=== PATIENT | male | born 1950 | race Caucasian/White ===

== ENCOUNTER → 2017-07-21 | Outpatient (CLI) | payer MEDICARE ==
[2017-07-21 11:53] LABS: HEMATOCRIT 50.3 % (42.0-52.0); HEMOGLOBIN 17.2 g/dL (13.5-18.0); MEAN CELL VOLUME 87 fl (78-100); MEAN CORPUSCULAR HEMOGLOBIN 30 pg (27-31); MEAN CORPUSCULAR HGB CONC 34 g/dL (33-37); MEAN PLATELET VOLUME 10.3 fl (7.4-10.4); PLATELET COUNT 168 K/mm3 (130-400); RED BLOOD COUNT 5.81 M/mm3 (4.20-5.60); RED CELL DISTRIBUTION WIDTH 13.3 % (11.5-14.5); WHITE BLOOD COUNT 8.7 K/mm3 (4.8-10.8)
[2017-07-21 12:10] LABS: CALCIUM 10.1 mg/dL (8.4-10.2); POTASSIUM 4.2 mmol/L (3.6-5.0)
[2017-07-21 12:22] LABS: LYMPHOCYTE 26 % (20-51); NEUTROPHILS 69 % (42-75)
[2017-07-21 12:23] LABS: MONOCYTE 5 % (3-10)
== END ==
LOC: LAB 11:34
PROVIDERS: Family Medicine
DX: I10 Essential (primary) hypertension (principal)

== ENCOUNTER 2017-11-15 10:22 | Emergency (ER) | payer MEDICARE, OTHER ==
[~2017-11-15] VITALS: Wt 109.3 kg
[2017-11-15 11:14] LABS: EOS # 0.3 (0.04-0.40); EOS % 5.2 % (0.0-4.0); HEMATOCRIT 49.2 % (42.0-52.0); HEMOGLOBIN 16.8 g/dL (13.5-18.0); LYMPH# 1.3 (1.50-4.00); MEAN CELL VOLUME 87 fl (78-100); MEAN CORPUSCULAR HEMOGLOBIN 30 pg (27-31); MEAN CORPUSCULAR HGB CONC 34 g/dL (33-37); MEAN PLATELET VOLUME 10.4 fl (7.4-10.4); MONO # 0.7 (0.20-0.80); NEU # 3.7 (1.40-6.50); PLATELET COUNT 160 K/mm3 (130-400); RED BLOOD COUNT 5.66 M/mm3 (4.20-5.60); RED CELL DISTRIBUTION WIDTH 13.2 % (11.5-14.5)
[2017-11-15] MEDS ORDERED: LOPRESSOR 550 MG/TAB PO (11:18)
[2017-11-15] MEDS ORDERED: CEPHALEXIN500 M1 PO (11:18)
[2017-11-15] MEDS ORDERED: ASPIRIN E.C. 8181 MG PO (11:19)
[2017-11-15 11:27] LABS: BUN/CREATININE RATIO 15.2 (6.0-26.0); CALCIUM 9.2 mg/dL (8.4-10.2); POTASSIUM 3.9 mmol/L (3.6-5.0); TOTAL BILIRUBIN 1.6 mg/dL (0.2-1.3); TOTAL PROTEIN 7.2 g/dL (6.3-8.2)
[2017-11-15 11:29] LABS: PARTIAL THROMBOPLASTIN TIME 25.4 SECONDS (21.0-32.0); PROTHROMBIN TIME 10.7 SECONDS (9.0-12.0)
[2017-11-15 11:36] LABS: TROPONIN-I < 0.03 ng/mL (0.00-0.06)
[2017-11-15 12:14] LABS: PH-URINE 7.5 (5.0 - 8.0); URINE APPEARANCE CLEAR; URINE BILIRUBIN NEGATIVE (NEGATIVE); URINE BLOOD NEGATIVE (NEGATIVE); URINE COLOR YELLOW; URINE GLUCOSE NEGATIVE (NEGATIVE); URINE KETONE NEGATIVE (NEGATIVE); URINE LEUKOCYTE ESTERASE NEGATIVE (NEGATIVE); URINE NITRATE NEGATIVE (NEGATIVE); URINE PROTEIN(semi-quant) TRACE mg/dL (NEGATIVE); URINE UROBILINOGEN NORMAL (NORMAL)
[2017-11-15 12:34] LABS: D-DIMER 1.63 mg/L FEU (0.15-0.50)
[2017-11-15] MEDS ORDERED: HYZAAR 100-251 EACH PO (15:07)
[2017-11-15 15:21] VITALS: BP 136/89
== END 2017-11-15 15:22 | disposition home or self-care (01) ==
LOC: ED 10:22
PROVIDERS: Nurse Practitioner
DX: I16.0 Hypertensive urgency (principal); E78.00 Pure hypercholesterolemia, unspecified; Z79.82 Long term (current) use of aspirin; Z91.018 Allergy to other foods; R00.1 Bradycardia, unspecified; H91.93 Unspecified hearing loss, bilateral
CPT/HCPCS: Q9967

== ENCOUNTER 2021-02-13 19:47 | Emergency (ER) | payer MEDICARE ==
[~2021-02-13 19:47] MED LIST: ASPIRIN E.C. 8181 MG PO; CEPHALEXIN500 M1 PO; HYZAAR 100-251 EACH PO; LOPRESSOR 550 MG/TAB PO
[2021-02-13] MEDS ORDERED: FLECAINIDE ACET50 MG PO (20:00)
[2021-02-13] MEDS ORDERED: AMLODIPINE BESYL5 MG PO (20:00)
[2021-02-13] MEDS ORDERED: CORTISPORIN OTI10 M2 OT (20:00)
[2021-02-13] MEDS ORDERED: HYGROTON 2525 MG/TAB PO (20:01)
[2021-02-13] MEDS ORDERED: TERBINAFINE250 MG PO (20:01)
[2021-02-13] MEDS ORDERED: K-TAB20 MEQ PO (20:01)
[2021-02-13] MEDS ORDERED: QUALITY CHOICE1 T26 PO (20:02)
[2021-02-13] MEDS ORDERED: VITAMIN D3125 MC4 PO (20:02)
[2021-02-13 20:40] VITALS: BP 150/106
== END 2021-02-13 20:40 | disposition home or self-care (01) ==
LOC: ED 19:47
DX: S61.211A Laceration without foreign body of left index finger without damage to nail, initial encounter (principal); I16.0 Hypertensive urgency; I10 Essential (primary) hypertension; Z79.899 Other long term (current) drug therapy; W26.8XXA Contact with other sharp object(s), not elsewhere classified, initial encounter